=== PATIENT | female | born 1965 | race Caucasian/White ===

== ENCOUNTER 2016-08-03 09:54 | Emergency (ER) | payer OTHER ==
[2016-08-03 10:18] VITALS: BP 106/54; PULSE 67; TEMP 98.7; BMI 21.7
--- NOTE | 2016-08-03 11:01 | PDOC ---
History of Present Illness - General History Source: Patient Exam Limitations: No Limitations <Evelyn Garnica - Last Filed: 08/03/16 10:55> - General History Source: Patient Exam Limitations: No Limitations - History of Present Illness Initial Comments: 08/03/16 11:25 The patient is a 51-year-old female (/A1), with no significant past medical history, who presents to the emergency department with complaints of abdominal pain and a sensation of pressure in her pelvic and vaginal region today. The patient reports she was using the bathroom when she felt an obstruction in her pelvic and vaginal region. She reports this has not happened previously. She states she became pale and sweaty. She reports an episode of rectal prolapse after having her second child. She denies any falls or other trauma. The patient denies chest pain, shortness of breath, headache and dizziness. The patient denies fever, chills, nausea, vomit, diarrhea and constipation. The patient denies dysuria, frequency, urgency and hematuria. Allergies: clarithromycin (from [employer]), iodine Social history: Denies smoking, ETOH, or recreational drug use PMD - Dr. Nikita Conway C D STRIPPER- Dr. Francis Mac and Dr. Ashley <Marlene Back - Last Filed: 08/03/16 11:27> - General Chief Complaint: Pain Stated Complaint: ABD PAIN/'Uterus Prolapsed? Time Seen by Provider: 08/03/16 10:30 Past History - Past Medical History Anemia: No Asthma: No Cancer: No Cardiac Disorders: No CVA: No COPD: No CHF: No Dementia: No Diabetes: No GI Disorders: Yes (DIVERTICULUM ASCENDING COLON,INTERNAL HEMORRHOIDS) Disorders: No HTN: No Hypercholesterolemia: No Liver Disease: No Seizures: No Thyroid Disease: No - Surgical History Abdominal Surgery: No Appendectomy: No Cardiac Surgery: No Cholecystectomy: No Lung Surgery: No Neurologic Surgery: No Orthopedic Surgery: No - Psycho/Social/Smoking Cessation Hx Suicidal Ideation: No Smoking History: Never smoked Have you smoked in the past 12 months: No Information on smoking cessation initiated: No Hx Alcohol Use: No Drug/Substance Use Hx: No Substance Use Type: None Hx Substance Use Treatment: No <Evelyn Garnica - Last Filed: 08/03/16 10:55> <Marlene Back - Last Filed: 08/03/16 11:27> - Past Medical History Allergies/Adverse Reactions: Allergies Allergy/AdvReac Type Severity Reaction Status Date / Time clarithromycin [From Biaxin] Allergy Verified 02/05/16 14:49 iodine Allergy Verified 08/03/16 10:16 Home Medications: Ambulatory Orders Levothyroxine [Synthroid -] 88 mcg PO DAILY 02/05/16 Liothyronine Sodium [Cytomel] 5 mcg PO DAILY 02/05/16 Review of Systems - Review of Systems Able to Perform ROS?: Yes Comments:: 08/03/16 11:26 GENERAL/CONSTITUTIONAL: No: fever, chills, weakness, loss of appetite. HEAD, EYES, EARS, NOSE AND THROAT: No: change in vision, ear pain, discharge, sore throat, throat swelling. CARDIOVASCULAR: No: chest pain, lightheadedness, palpitations, syncope RESPIRATORY: No: cough, shortness of breath, wheezing, hemoptysis, stridor. GASTROINTESTINAL: Present: (+) abdominal pain No: nausea, vomiting, diarrhea, rectal bleeding, constipation. GENITOURINARY: Present: (+) vaginal and pelvic pressure No: dysuria, hematuria, frequency, urgency, flank pain. MUSCULOSKELETAL: No: back pain, neck pain, joint pain, muscle swelling or pain SKIN AND BREASTS: No: lesions, pallor, rash or easy bruising. NEUROLOGIC: No: headache, vertigo, paresthesias, weakness ENDOCRINE: No: unexplained weight gain or loss HEMATOLOGIC/LYMPHATIC: No: anemia, easy bleeding, swelling nodes <Back,Marlene - Last Filed: 08/03/16 11:27> *Physical Exam - Vital Signs Last Vital Signs Temp Pulse Resp BP Pulse Ox 98.7 F 67 18 106/54 100 08/03/16 10:14 08/03/16 10:14 08/03/16 10:14 08/03/16 10:14 08/03/16 10:14 <Evelyn Garnica - Last Filed: 08/03/16 10:55> - Vital Signs Last Vital Signs Temp Pulse Resp BP Pulse Ox 98.7 F 67 18 106/54 100 08/03/16 10:14 08/03/16 10:14 08/03/16 10:14 08/03/16 10:14 08/03/16 10:14 - Physical Exam Comments: 08/03/16 11:26 GENERAL: The patient is in no acute distress. ABDOMEN: No abdominal tenderness. PELVIC: Normal external genitalia. Cervix visible and distal vaginal vault. No protrusion out of the vagina. SKIN: No excoriated skin. No bleeding. Warm, Dry, normal turgor, no rashes or lesions noted. <Marlene Back - Last Filed: 08/03/16 11:27> Medical Decision Making - Medical Decision Making 08/03/16 10:55 A portion of this note was documented by scribe services under my direction. I have reviewed the details of the note, within reason, and agree with the documentation with the following case summary and management plan written by me. Nursing documentation reviewed and incorporated into medical decision making This is a 51 yo F with no significant past medical history Was having a bowel movement, when she felt a sensation of pressure in her pelvis and vaginal area Pt denies pain States this has not happened to her previously She had 3 pregnancies, two which went to term (rectal prolapse during ) She denies urinary complaints On examination Uterine prolapse likely Uterus noted to be in the lower vaginal vault, NOT outside of the body Call placed to Dr Frances (union organiser for email developer) Will: discharge to home Follow up with [facility] within 1-[address] Frances States pt can be discharged to home Should follow up with Urogynecology <Evelyn Garnica - Last Filed: 08/03/16 10:55> *DC/Admit/Observation/Transfer - Discharge Dispostion Admit: No <Evelyn Garnica - Last Filed: 08/03/16 10:55> - Attestations Scribe Attestion: 08/03/16 11:27 Documentation prepared by Marlene Back, acting as medical office worker for Evelyn Garnica MD. <Marlene Back - Last Filed: 08/03/16 11:27> Diagnosis at time of Disposition: Uterine prolapse - Discharge Dispostion Disposition: HOME Condition at time of disposition: Improved - Referrals Referrals: Nikita Conway MD [Primary Care Provider] - - Patient Instructions Printed Discharge Instructions: DI for Uterine Prolapse Additional Instructions: Maricel, I am so sorry this happened this morning Thank you for coming in to the ER I did discuss your case with Dr Juan Daniel He recommended that you follow up with a Urogynecology specialist I printed out a few local options, though I have piano regulator inspector with any of them Please return to the ER for any other complaints, particularly if the uterus has prolapsed and can not go back in to the vagina - Post Discharge Activity Work/School Note: Back to Work
== END 2016-08-03 11:10 | disposition home or self-care (01) ==
LOC: JER 09:54
DX: N81.4 Uterovaginal prolapse, unspecified (principal)
CPT/HCPCS: 99281-25